=== PATIENT | male | born 1980 | race Caucasian/White ===

== ENCOUNTER 2017-07-14 17:23 | Emergency (ER) | payer SELFPAY ==
[~2017-07-14] VITALS: Ht 165.1 cm; Wt 63.0 kg
[2017-07-14] MEDS ORDERED: ACETAMINOPHEN 325MG TABLET PO ONE (18:45)
[2017-07-14 20:45] VITALS: BP 119/74
== END 2017-07-14 21:20 | disposition home or self-care (01) ==
LOC: ER 17:38
DX: S20.312A Abrasion of left front wall of thorax, initial encounter (principal); M54.2 Cervicalgia; R42 Dizziness and giddiness; F17.200 Nicotine dependence, unspecified, uncomplicated; Y08.89XA Assault by other specified means, initial encounter; Y93.89 Activity, other specified; Y92.89 Other specified places as the place of occurrence of the external cause; Y99.0 Civilian activity done for income or pay
CPT/HCPCS: 70360; 70450; 71045; 99284; Z7610